=== PATIENT | female | born 1950 | race Caucasian/White ===

== ENCOUNTER 2018-07-31 16:20 | Emergency (ER) | payer OTHER ==
[2018-07-31 16:22] VITALS: BMI 19.2
[2018-07-31 16:27] VITALS: BP 133/82; PULSE 75; RESP 18; TEMP 97.6; O2SAT 99
--- NOTE | 2018-07-31 16:51 | C.PDOC ---
History Of Present Illness 67 year old female with a PMHx of hypercholesterolemia and CAD presents to the ED for evaluation of head injury sustained just [employer]. Patient states while shopping, she was bent down looking at items when luggage fell from the top shelf, and the wheel struck her head. There was no fall or LOC. Patient denies any nausea, vomiting, photophobia, visual loss, or dizziness. Time Seen by Provider: 07/31/18 16:39 Chief Complaint (Nursing): Headache History Per: Patient History/Exam Limitations: no limitations Onset/Duration Of Symptoms: Mins Current Symptoms Are (Timing): Still Present Associated Symptoms: denies: Photophobia, Nausea, Vomiting Past Medical History Reviewed: Historical Data, Nursing Documentation, Vital Signs Vital Signs: Last Vital Signs Temp 97.6 F 07/31/18 16:23 Pulse 75 07/31/18 16:23 Resp 18 07/31/18 16:23 BP 133/82 07/31/18 16:23 Pulse Ox 99 07/31/18 16:23 - Medical History PMH: CAD, Hypercholesterolemia Family History: States: No Known Family Hx - Social History Hx Alcohol Use: No Hx Substance Use: No - Immunization History Hx Tetanus Toxoid Vaccination: No Hx Influenza Vaccination: No Hx Pneumococcal Vaccination: No Review Of Systems Constitutional: Negative for: Fever, Chills Eyes: Negative for: Vision Change Cardiovascular: Negative for: Chest Pain Respiratory: Negative for: Shortness of Breath Gastrointestinal: Negative for: Nausea, Vomiting Musculoskeletal: Negative for: Neck Pain Neurological: Positive for: Headache. Negative for: Weakness, Numbness, Confusion, Altered Mental Status, Dizziness Physical Exam - Physical Exam Appears: Well, Non-toxic, No Acute Distress Skin: Warm, Dry, No Rash Head: Atraumatic, Normacephalic, No Swelling, No Laceration Eye(s): bilateral: Normal Inspection, PERRL, EOMI Ear(s): Bilateral: Normal (TMs clear, no hemotympanum) Nose: Normal Oral Mucosa: Moist Neck: Normal ROM, No Midline Cervical Tenderness, Supple Chest: Symmetrical Cardiovascular: Rhythm Regular, No Murmur Respiratory: Normal Breath Sounds, No Accessory Muscle Use, No Wheezing Gastrointestinal/Abdominal: Soft, No Tenderness, No Distention Extremity: Bilateral: Atraumatic, Normal Color And Temperature, Normal ROM Neurological/Psych: Oriented x3, Normal Speech, Normal Cognition, Normal Cranial Nerves (2-12 intact), Other (No focal deficits) Gait: Steady ED Course And Treatment O2 Sat by Pulse Oximetry: 99 (RA) Pulse Ox Interpretation: Normal Medical Decision Making Medical Decision Making: Impression: Minor head injury Plan: --Tylenol 975 mg PO --Motrin 600 mg PO Disposition Counseled Patient/Family Regarding: Studies Performed, Diagnosis, Need For Followup, Rx Given - Disposition Referrals: Adan Farr MD [Medical Doctor] - Disposition: HOME/ ROUTINE Disposition Time: 17:40 Condition: STABLE Prescriptions: Ibuprofen [Motrin] 600 mg PO TID #15 tab Instructions: Minor Head Injury (DC) Forms: [facility] (Uzbek), General Discharge Instructions - POA Present On Arrival: None - Clinical Impression Clinical Impression: Head trauma - Scribe Statement The provider has reviewed the documentation as recorded by the Carol Napoles Provider Attestation: All medical record entries made by the Latoyaibe were at my direction and personally dictated by me. I have reviewed the chart and agree that the record accurately reflects my personal performance of the history, physical exam, medical decision making, and the department course for this patient. I have also personally directed, reviewed, and agree with the discharge instructions and disposition.
== END 2018-07-31 17:50 | disposition home or self-care (01) ==
LOC: C.ER 16:20
DX: S09.90XA Unspecified injury of head, initial encounter (principal); W20.8XXA Other cause of strike by thrown, projected or falling object, initial encounter; E78.00 Pure hypercholesterolemia, unspecified; I25.10 Atherosclerotic heart disease of native coronary artery without angina pectoris